=== PATIENT | male | born 1970 | race Asian ===

== ENCOUNTER 2024-10-04 08:37 | Outpatient (CLI) | payer BC | END 2024-10-04 08:38 | disposition home or self-care (01) | LOC: CSHSLEEP 08:37 | PROVIDERS: ATTEND Internal Medicine | DX: R53.83 Other fatigue (principal); F41.9 Anxiety disorder, unspecified; K21.9 Gastro-esophageal reflux disease without esophagitis; R06.83 Snoring; G47.00 Insomnia, unspecified | CPT/HCPCS: 95800 ==